=== PATIENT | female | born 1995 | race Caucasian/White ===

== ENCOUNTER 2017-09-17 20:58 | Emergency (ER) | payer MEDICAID ==
[2017-09-17 21:50] LABS: BASOPHILS 0.1 % (0-2); EOSINOPHILS 0.7 % (0-7); HEMATOCRIT 37.4 % (36.0-48.0); HEMOGLOBIN 12.5 g/dL (12-16); IMMATURE GRANULOCYTES 0.2 % (0-5); LYMPHOCYTES 15.6 % (15-50); MCH 29.5 pg (26.0-34.0); MCHC 33.4 g/dL (31.0-37.0); MCV 88.2 fL (80.0-100.0); MONOCYTES 7.1 % (2-11); NEUTROPHILS 76.3 % (40-80); PLATELET COUNT 184 10x3/uL (130-400); RBC 4.24 10x6/uL (4.00-5.40); RDW 13.3 % (11.5-14.5); WBC 8.9 10x3/uL (4.8-10.8)
[2017-09-17 22:06] LABS: ALBUMIN 3.6 g/dL (3.4-5.0); CHLORIDE - SERUM 104 mmol/L (98-107); POTASSIUM - SERUM 3.9 mmol/L (3.5-5.1); UREA NITROGEN 11 mg/dL (7-18)
[2017-09-17 22:17] LABS: APPEARANCE CLEAR (CLEAR); BILIRUBIN NEGATIVE (NEGATIVE); COLOR YELLOW (YELLOW); GLUCOSE NEGATIVE (NEGATIVE); KETONE NEGATIVE (NEGATIVE); NITRITE NEGATIVE (NEGATIVE); PROTEIN NEGATIVE (NEGATIVE); SPECIFIC GRAVITY 1.025 (1.005-1.020); UROBILINOGEN NORMAL (NORMAL); WHITE CELLS - URINE 0-5 /hpf (0-5)
[2017-09-17 22:17] LABS: ALKALINE PHOSPHATASE 59 U/L (46-116); ALT (SGPT) 28 U/L (10-68); BILIRUBIN - TOTAL 0.15 mg/dL (0.2-1.3); CALC OSMOLALITY 274 mosm/kg (275-300); CALCIUM 9.5 mg/dL (8.5-10.1); CREATININE - SERUM 0.8 mg/dL (0.6-1.3); GLUCOSE 100 mg/dL (74-106); PROTEIN - SERUM 7.3 g/dL (6.4-8.2); SODIUM 138 mmol/L (136-145); eGFR NON AFRICAN AMERICAN > 90 mL/min (90-120)
[2017-09-17 22:18] LABS: BACTERIA MODERATE /hpf (NONE SEEN)
[2017-09-17 22:39] LABS: HCG - QUANTITATIVE (MATERNAL) 13561 mIU/mL
== END 2017-09-18 02:14 | disposition home or self-care (01) ==
LOC: D.ER 20:58
PROVIDERS: Emergency Medicine
DX: O20.0 Threatened abortion (principal); Z3A.01 Less than 8 weeks gestation of pregnancy

== ENCOUNTER → 2017-10-16 16:07 | Outpatient (CLI) | payer MEDICAID ==
[2017-10-16 19:34] LABS: BASOPHILS 0.1 % (0-2); EOSINOPHILS 0.5 % (0-7); HEMATOCRIT 38.1 % (36.0-48.0); HEMOGLOBIN 13.1 g/dL (12-16); IMMATURE GRANULOCYTES 0.1 % (0-5); LYMPHOCYTES 20.2 % (15-50); MCHC 34.4 g/dL (31.0-37.0); MCV 87.4 fL (80.0-100.0); MEAN PLATELET VOLUME 10.4 fL (7.4-10.4); MONOCYTES 3.8 % (2-11); NEUTROPHILS 75.3 % (40-80); PLATELET COUNT 168 10x3/uL (130-400); RBC 4.36 10x6/uL (4.00-5.40); RDW 13.1 % (11.5-14.5); WBC 7.8 10x3/uL (4.8-10.8)
[2017-10-16 19:39] LABS: APPEARANCE CLEAR (CLEAR); BILIRUBIN NEGATIVE (NEGATIVE); COLOR YELLOW (YELLOW); GLUCOSE NEGATIVE (NEGATIVE); KETONE NEGATIVE (NEGATIVE); NITRITE NEGATIVE (NEGATIVE); PROTEIN NEGATIVE (NEGATIVE); SPECIFIC GRAVITY 1.015 (1.005-1.020); UROBILINOGEN NORMAL (NORMAL)
[2017-10-16 19:46] LABS: INR 1.03 (0.85-1.17); PROTIME 13.1 SECONDS (11.6-15.0)
== END | disposition home or self-care (01) ==
LOC: D.LDO 16:07
PROVIDERS: Obstetrics & Gynecology
DX: O20.9 Hemorrhage in early pregnancy, unspecified (principal); Z3A.09 9 weeks gestation of pregnancy

== ENCOUNTER 2017-12-16 16:11 | Emergency (ER) | payer MEDICAID ==
[2017-12-16 16:56] LABS: BASOPHILS 0.2 % (0-2); HEMATOCRIT 32.6 % (36.0-48.0); IMMATURE GRANULOCYTES 0.3 % (0-5); LYMPHOCYTES 21.3 % (15-50); MCH 30.1 pg (26.0-34.0); MCHC 33.7 g/dL (31.0-37.0); MCV 89.1 fL (80.0-100.0); MONOCYTES 4.2 % (2-11); PLATELET COUNT 143 10x3/uL (130-400); RBC 3.66 10x6/uL (4.00-5.40); RDW 13.5 % (11.5-14.5); WBC 5.7 10x3/uL (4.8-10.8)
[2017-12-16 17:17] LABS: ALKALINE PHOSPHATASE 53 U/L (46-116); ALT (SGPT) 16 U/L (10-68); CALC OSMOLALITY 273 mosm/kg (275-300); CALCIUM 9.8 mg/dL (8.5-10.1); CARBON DIOXIDE 22.5 mmol/L (21.0-32.0); CHLORIDE - SERUM 105 mmol/L (98-107); CREATININE - SERUM 0.6 mg/dL (0.6-1.3); GLUCOSE 85 mg/dL (74-106); POTASSIUM - SERUM 3.8 mmol/L (3.5-5.1); PROTEIN - SERUM 7.1 g/dL (6.4-8.2); SODIUM 139 mmol/L (136-145); UREA NITROGEN 5 mg/dL (7-18); eGFR NON AFRICAN AMERICAN > 90 mL/min (90-120)
[2017-12-16 17:38] LABS: APPEARANCE CLEAR (CLEAR); BILIRUBIN NEGATIVE (NEGATIVE); COLOR YELLOW (YELLOW); GLUCOSE NEGATIVE (NEGATIVE); KETONE NEGATIVE (NEGATIVE); NITRITE NEGATIVE (NEGATIVE); PROTEIN NEGATIVE (NEGATIVE); SPECIFIC GRAVITY 1.025 (1.005-1.020); UROBILINOGEN NORMAL (NORMAL)
[2017-12-16 17:39] LABS: RED CELLS - URINE 0-5 /hpf (0-5); WHITE CELLS - URINE 0-5 /hpf (0-5)
[2017-12-16 17:40] LABS: BACTERIA MANY /hpf (NONE SEEN); MUCUS <1+ /lpf (NONE SEEN)
== END 2017-12-16 19:09 | disposition home or self-care (01) ==
LOC: D.ER 16:11
PROVIDERS: Emergency Medicine
DX: N39.0 Urinary tract infection, site not specified (principal)

== ENCOUNTER → 2018-02-17 20:39 | Outpatient (CLI) | payer MEDICAID ==
[2018-02-17 21:05] LABS: APPEARANCE CLEAR (CLEAR); COLOR YELLOW (YELLOW); SPECIFIC GRAVITY 1.015 (1.005-1.020)
[2018-02-17 21:06] LABS: BILIRUBIN NEGATIVE (NEGATIVE); GLUCOSE NEGATIVE (NEGATIVE); KETONE NEGATIVE (NEGATIVE); NITRITE NEGATIVE (NEGATIVE); PROTEIN NEGATIVE (NEGATIVE); UROBILINOGEN NORMAL (NORMAL)
== END | disposition home or self-care (01) ==
LOC: D.LDO 20:39
PROVIDERS: Obstetrics & Gynecology
DX: O26.893 Other specified pregnancy related conditions, third trimester (principal); Z3A.28 28 weeks gestation of pregnancy; R42 Dizziness and giddiness; R20.2 Paresthesia of skin; M54.9 Dorsalgia, unspecified; R51 Headache; R11.2 Nausea with vomiting, unspecified

== ENCOUNTER 2018-04-17 01:05 | Inpatient (IN) | payer MEDICAID ==
[~2018-04-17] VITALS: Ht 152.4 cm; Wt 65.9 kg
--- NOTE | ~2018-04-17 | OP ---
PATIENT NAME: NEIDA MADDEN MEDICAL RECORD: [id number] :[birth year] LOCATION:[id number] ADMISSION DATE:04/17/18 SURGEON: RAZ BOURNE MD DATE OF OPERATION: 04/17/2018 The patient with history of previous section, admitted in active labor and also in breech presentation. PREOPERATIVE DIAGNOSES: 1. History of previous section. 2. Labor, at term. 3. Breech presentation. POSTOPERATIVE DIAGNOSES: 1. History of previous section. 2. Labor, at term. 3. Breech presentation. 4. Adhesive disease involving uterus and bladder. PROCEDURES: Repeat low transverse section and lysis of adhesion. SURGEON: Raz Bourne ESTIMATED BLOOD LOSS: 1000 cc. INTRAVENOUS FLUIDS: Per anesthesia records. SPECIMENS: Placenta and cord for gases. COMPLICATIONS: None apparent. FINDINGS: 1. Viable female infant. 2. Placenta delivered manually, intact. Three-vessel cord. 3. Dense adhesive disease involving the uterus and the bladder. 4. Normal adnexa bilaterally. PROCEDURE IN DETAIL: The patient was taken to the operating room, where regional anesthesia was achieved without any difficulty. The patient was then prepped and draped in normal sterile fashion in dorsal supine position. SCDs were on and functioning normally. Bledsoe catheter had been placed and was draining freely. Following prep and drape, a repeat Pfannenstiel skin incision was made and extended downward to the underlying subcutaneous fat to the level of the fascia. The fascia was then excised with a scalpel in the midline and extended bilaterally using the Owens scissors. Superior and inferior aspects of the fascial incision were then grasped with Rut clamps times 2, tented upward, and sharply dissected from the underlying rectus muscle using Owens scissors and Bovie cautery. The rectus muscles were then bluntly in the midline using the Metzenbaum scissors and the peritoneum was entered at the superior aspect of the incision using Metzenbaum scissors. Upon entry into the intraperitoneal space, dense adhesive disease involving uterus, bladder, and anterior peritoneum were noted. Careful dissection of the peritoneal adhesions were performed using the Metzenbaum scissors. No evidence of bladder injury was noted at that time. A bladder flap was created and previous scars from previous C-sections were dissected downward and a complete bladder flap was created. A OPERATIVE REPORT [id number] CHANO,NEIDA KAREN low transverse incision was made and extended superiorly and inferiorly using the Pelosi method. The breech was identified upon opening the uterine incision. Two fingers were placed. The baby's hips were backed up and the breech was delivered atraumatically. The was then delivered to the level of the shoulder and the right arm was then delivered followed by the left, and the 's head was then delivered atraumatically. The was bulb suctioned upon delivery of the head. Cord was clamped times 2 and cut. The was handed to the awaiting nursery team. Cord was obtained for gases. The uterus was then exteriorized. The placenta was delivered manually intact. Three-vessel cord was noted. Uterus was cleared of all clots and debris using a lap sponge. The uterus was then vigorously massaged until good hemostasis was noted. Uterine incision was then repaired with #0 Vicryl in a running locked fashion times 2 with good hemostasis noted. Following repair of the uterus with #0 Vicryl, posterior cul-de-sac was then thoroughly irrigated and the uterus was replaced into the pelvis. Anterior cul-de-sac was then thoroughly irrigated and the uterine incision was then found to be hemostatic. Counts were correct times 2 for instruments, needles, and sponges. The fascia was repaired with #0 loop PDS in a running fashion times 1 and the skin was repaired with jorge luis. The patient tolerated the procedure well and was transported to postanesthesia recovery stable without incident. TRANSINT:[id number] Voice Confirmation ID: [id number] DOCUMENT ID: [id number] RAZ BOURNE MD at 1754 CC: [id number] DICTATION DATE: 05/11/18 180 PRINT LINE TAILER: 05/11/18 192 DIS IN 04/18/18 [facility] [address] [place] [address]
--- NOTE | ~2018-04-17 | DS ---
PATIENT:NEIDA MADDEN :[birth year] MEDICAL RECORD: [id number] DISCHARGE SUMMARY ADMISSION DATE: 04/17/18 DISCHARGE DATE: 04/18/18 The patient was admitted on 04/17/2018. HISTORY: As mentioned, the patient was a 23-year-old at 35 weeks and 4 days. The patient was noted to be A positive, group B strep unknown, rubella unknown. The patient was admitted complaining of contractions and noted to be 4 cm with irregular contractions at admission. Ultrasound revealed breech presentation. The patient with history of previous section. PAST MEDICAL HISTORY: Significant for depression. PAST SURGICAL HISTORY: Significant for . ALLERGIES: The patient reported no allergies. FAMILY HISTORY: Significant for a parent, sibling, and child with hypertension. SOCIAL HISTORY: Negative times 3 per the patient. PHYSICAL EXAMINATION: VITAL SIGNS: On initial assessment, vital signs were stable. The patient was normotensive and afebrile. LUNGS: Clear to auscultation. CARDIOVASCULAR: Regular rate and rhythm. PELVIC: Uterus was appropriately sized and nontender. EXTREMITIES: Lower extremities were free of Homans sign. Cervical exam was found to be 4 cm. Admit hemoglobin was found to be 10 with platelet count of 124. wellbeing was reassuring with category 1 tracing. ASSESSMENT AND PLAN: At admission; 1. Intrauterine at 35 weeks and 4 days. 2. History of previous section. 3. Breech presentation. 4. Depression. Plan at that time was to proceed with repeat low transverse section due to gagan breech presentation. Hemoglobin was found to be 10. Two units of packed red blood cells were placed on hold. Risks and benefits were explained to the patient. The patient voiced understanding and consented. wellbeing was reassuring. Operative report is as dictated. The patient did well overnight on postop day #0, tolerating clear liquid diet. The patient was on IV fluids. The patient was on Dilaudid FRAMING INSPECTOR and Toradol for pain. Bledsoe catheter was left in overnight and was draining freely. SCDs were on and functioning normally. On the morning of postop day #1, the patient was doing well. Vital signs were stable. The patient was afebrile. Hemoglobin was found to be stable. The patient was advanced to general diet and p.o. pain meds. Incision was clean, dry, and intact. Uterus was infraumbilical and appropriately tender. The patient reported minimal lochia. Bledsoe catheter was discontinued and the patient was ambulating. The patient had a positive depression screen, but no current suicidal or homicidal ideation. Case DISCHARGE SUMMARY REPORT [id number] NEIDA MADDEN management was consulted and the patient was started on Zoloft 50 mg. The patient remained stable overnight on postop day #1. On the morning of postop day #2, doing well, followed by case management with plan to follow up in 2 weeks, continuing the Zoloft. The patient was advised to follow up next week to evaluate the incision and depression. The patient was advised to call with any worsening of her depressive symptoms, any suicidal ideation or homicidal ideation. TRANSINT:[id number] Voice Confirmation ID: [id number] DOCUMENT ID: [id number] CONOR GRADY MD at 1754 CC: [id number] DICTATION DATE: 05/11/181812 AUTOMATIC DOOR MECHANIC: 05/11/182021 DIS IN 04/18/18 [facility] [address] [place] [address]
[2018-04-17 02:30] LABS: APPEARANCE CLEAR (CLEAR); BILIRUBIN NEGATIVE (NEGATIVE); COLOR YELLOW (YELLOW); GLUCOSE NEGATIVE (NEGATIVE); KETONE NEGATIVE (NEGATIVE); NITRITE NEGATIVE (NEGATIVE); PROTEIN NEGATIVE (NEGATIVE); SPECIFIC GRAVITY 1.015 (1.005-1.020); UROBILINOGEN NORMAL (NORMAL)
[2018-04-17 02:40] LABS: BACTERIA FEW /hpf (NONE SEEN); EPITHELIAL CELLS 0-5 /hpf (0-5); RED CELLS - URINE 0-5 /hpf (0-5); WHITE CELLS - URINE 0-5 /hpf (0-5)
[2018-04-17 04:36] VITALS: BP 114/66; Ht 152.4 cm; Wt 65.9 kg
[2018-04-17 04:58] LABS: HEMATOCRIT 30.2 % (36.0-48.0); MCHC 33.1 g/dL (31.0-37.0); MCV 87.5 fL (80.0-100.0); MEAN PLATELET VOLUME 11.3 fL (7.4-10.4); RBC 3.45 10x6/uL (4.00-5.40); WBC 8.3 10x3/uL (4.8-10.8)
[2018-04-17 07:49] VITALS: BP 111/76
[2018-04-17 08:15] VITALS: BP 116/65
[2018-04-17 08:30] VITALS: BP 118/65
[2018-04-17 09:15] VITALS: BP 104/61
[2018-04-17 13:37] LABS: BASOPHILS 0.2 % (0-2); EOSINOPHILS 0.3 % (0-7); HEMOGLOBIN 9.7 g/dL (12-16); IMMATURE GRANULOCYTES 0.3 % (0-5); LYMPHOCYTES 12.5 % (15-50); MCHC 33.4 g/dL (31.0-37.0); MCV 86.8 fL (80.0-100.0); MEAN PLATELET VOLUME 11.9 fL (7.4-10.4); MONOCYTES 5.7 % (2-11); PLATELET COUNT 121 10x3/uL (130-400); RBC 3.34 10x6/uL (4.00-5.40)
[2018-04-17 13:38] LABS: WBC 11.9 10x3/uL (4.8-10.8)
[2018-04-17 15:55] LABS: HIV 1 & 2- RAPID SCREEN NEGATIVE (NEGATIVE)
[2018-04-17 20:39] VITALS: BP 104/61
[2018-04-18 01:58] VITALS: BP 104/66
[2018-04-18 05:33] VITALS: BP 107/52
[2018-04-18 06:17] LABS: RAPID PLASMA REAGIN Non Reactive (Non Reactive)
[2018-04-18 07:24] LABS: BASOPHILS 0.1 % (0-2); EOSINOPHILS 0.9 % (0-7); HEMATOCRIT 27.6 % (36.0-48.0); IMMATURE GRANULOCYTES 0.2 % (0-5); LYMPHOCYTES 19.7 % (15-50); MCH 28.8 pg (26.0-34.0); MCHC 32.6 g/dL (31.0-37.0); MCV 88.5 fL (80.0-100.0); MEAN PLATELET VOLUME 11.4 fL (7.4-10.4); MONOCYTES 5.9 % (2-11); NEUTROPHILS 73.2 % (40-80); PLATELET COUNT 118 10x3/uL (130-400); RBC 3.12 10x6/uL (4.00-5.40); RDW 13.2 % (11.5-14.5)
[2018-04-18 07:25] LABS: WBC 8.1 10x3/uL (4.8-10.8)
[2018-04-18 08:00] VITALS: BP 104/60
[2018-04-18 10:21] LABS: HEPATITIS C ANTIBODY <0.1 (0.0-0.9)
[2018-04-18 15:24] LABS: RUBELLA IGG <0.90 index (Immune >0.99)
[2018-04-18] MEDS ORDERED: ZOLOFT50 MG PO (17:41)
[2018-04-18] MEDS ORDERED: HYDROCODONE-APA1 TAB PO (17:42)
[2018-04-18] MEDS ORDERED: MOTRIN600 MG PO (17:43)
[2018-04-22 15:12] LABS: HGB SOLUBILITY (SICKLE SCREEN) Negative (Negative)
== END 2018-04-18 18:30 | disposition home or self-care (01) | DRG 765 ==
LOC: D.LDO 01:05 → D.LD 04:31 → EDBD 04-18 18:30 → D.LD 04-18 18:30
PROVIDERS: Obstetrics & Gynecology
PROC: 10D00Z1 Extraction of Products of Conception, Low, Open Approach (ICD-10-PCS; principal; 2018-04-17 05:30)
DX: O99.344 Other mental disorders complicating childbirth (principal); O60.14X0 Preterm labor third trimester with preterm delivery third trimester, not applicable or unspecified; Z3A.35 35 weeks gestation of pregnancy; Z37.0 Single live birth; O34.211 Maternal care for low transverse scar from previous cesarean delivery; O32.1XX0 Maternal care for breech presentation, not applicable or unspecified

== ENCOUNTER 2018-05-13 | Emergency (ER) | payer SELFPAY ==
[~2018-05-13] VITALS: Ht 152.4 cm; Wt 55.9 kg
[~2018-05-13] MED LIST: HYDROCODONE-APA1 TAB PO; MOTRIN600 MG PO; ZOLOFT50 MG PO
[2018-05-13 00:04] VITALS: Ht 152.4 cm; Wt 55.9 kg
[2018-05-13 00:46] LABS: HCG SERUM NEGATIVE (NEGATIVE)
[2018-05-13 00:48] LABS: BASOPHILS 0.5 % (0-2); EOSINOPHILS 2.1 % (0-7); HEMOGLOBIN 9.6 g/dL (12-16); IMMATURE GRANULOCYTES 0.2 % (0-5); LYMPHOCYTES 23.1 % (15-50); MCH 25.1 pg (26.0-34.0); MCV 78.5 fL (80.0-100.0); MONOCYTES 5.7 % (2-11); NEUTROPHILS 68.4 % (40-80); PLATELET COUNT 348 10x3/uL (130-400); RBC 3.82 10x6/uL (4.00-5.40); RDW 18.6 % (11.5-14.5); WBC 10.4 10x3/uL (4.8-10.8)
[2018-05-13 00:56] LABS: CALC OSMOLALITY 281 mosm/kg (275-300); CALCIUM 8.6 mg/dL (8.5-10.1); CARBON DIOXIDE 28.9 mmol/L (21.0-32.0); CHLORIDE - SERUM 103 mmol/L (98-107); CREATININE - SERUM 0.7 mg/dL (0.6-1.3); GLUCOSE 93 mg/dL (74-106); POTASSIUM - SERUM 3.7 mmol/L (3.5-5.1); SODIUM 140 mmol/L (136-145); THYROID STIMULATING HORMONE 0.58 uIU/mL (0.36-3.74); UREA NITROGEN 22 mg/dL (7-18); eGFR NON AFRICAN AMERICAN > 90 mL/min (90-120)
[2018-05-13 00:59] LABS: UDS - AMPHET POSITIVE QUAL (NEGATIVE); UDS - BARB NEGATIVE QUAL (NEGATIVE); UDS - BENZO NEGATIVE QUAL (NEGATIVE); UDS - COCAINE NEGATIVE QUAL (NEGATIVE); UDS - OPIATE NEGATIVE QUAL (NEGATIVE); UDS - PCP NEGATIVE QUAL (NEGATIVE); UDS - THC POSITIVE QUAL (NEGATIVE)
[2018-05-13 01:38] LABS: APPEARANCE CLOUDY (CLEAR); BILIRUBIN NEGATIVE (NEGATIVE); COLOR DY (YELLOW); GLUCOSE NEGATIVE (NEGATIVE); KETONE MODERATE mg/dL (NEGATIVE); NITRITE NEGATIVE (NEGATIVE); PROTEIN 3+ mg/dL (NEGATIVE); UROBILINOGEN NORMAL (NORMAL)
[2018-05-13 01:42] LABS: BACTERIA FEW /hpf (NONE SEEN); EPITHELIAL CELLS 0-5 /hpf (0-5)
[2018-05-13 10:44] VITALS: BP 102/052
== END 2018-05-13 10:30 ==
LOC: D.ER → EDBD → D.ER 10:30
PROVIDERS: Family Medicine
DX: R45.851 Suicidal ideations (principal); F32.9 Major depressive disorder, single episode, unspecified; A59.9 Trichomoniasis, unspecified; F17.200 Nicotine dependence, unspecified, uncomplicated